=== PATIENT | female | born 1980 | race African-American/Black ===

== ENCOUNTER 2017-06-03 11:53 | Outpatient (CLI) | payer MEDICAID | END 2017-06-03 11:54 | disposition home or self-care (01) | LOC: BICULT 11:53 | PROVIDERS: ATTEND Nurse Practitioner | DX: N92.1 Excessive and frequent menstruation with irregular cycle (principal); N94.89 Other specified conditions associated with female genital organs and menstrual cycle; R93.8 Abnormal findings on diagnostic imaging of other specified body structures | CPT/HCPCS: 76856 ==